=== PATIENT | female | born 1990 | race Two or more races ===

== ENCOUNTER 2022-05-09 15:00 | Inpatient (IN) | payer OTHER ==
[~2022-05-09] VITALS: Ht 162.6 cm; Wt 67.1 kg
[2022-05-21] MEDS ORDERED: PRENATAL CAPLE1 EAC1 PO (10:17)
== END 2022-05-23 13:03 | disposition home or self-care (01) | DRG 807 ==
LOC: EDUNIT# 15:00 → OB/GYN 05-21 08:18 → LDR 05-21 08:18 → OB/GYN 05-21 09:34
PROVIDERS: ADMIT Obstetrics & Gynecology Maternal & Fetal Medicine; ATTEND Obstetrics & Gynecology Maternal & Fetal Medicine
PROC: 10E0XZZ Delivery of Products of Conception, External Approach (ICD-10-PCS; principal; 2022-05-21)
PROC: 0UQG7ZZ Repair Vagina, Via Natural or Artificial Opening (ICD-10-PCS; 2022-05-21)
PROC: 0W8NXZZ Division of Female Perineum, External Approach (ICD-10-PCS; 2022-05-21)
PROC: 4A1HXCZ Monitoring of Products of Conception, Cardiac Rate, External Approach (ICD-10-PCS; 2022-05-21)
DX: O71.4 Obstetric high vaginal laceration alone (principal); Z37.0 Single live birth; Z3A.39 39 weeks gestation of pregnancy; Z20.822 Contact with and (suspected) exposure to COVID-19

== ENCOUNTER 2022-05-20 12:53 | Outpatient (CLI) | payer OTHER ==
[2022-05-21] MEDS ORDERED: PRENATAL CAPLE1 EAC1 PO (10:17)
== END 2022-05-20 13:37 | disposition home or self-care (01) ==
LOC: NST 12:53
PROVIDERS: ATTEND Obstetrics & Gynecology Gynecology
DX: Z34.83 Encounter for supervision of other normal pregnancy, third trimester (principal)

== ENCOUNTER 2022-06-27 09:05 | Outpatient (CLI) | payer OTHER ==
[~2022-06-27 09:05] MED LIST: PRENATAL CAPLE1 EAC1 PO
== END 2022-06-27 09:07 | disposition home or self-care (01) ==
LOC: MRI 09:05
PROVIDERS: ATTEND Obstetrics & Gynecology Gynecology
DX: O72.1 Other immediate postpartum hemorrhage (principal); Q27.30 Arteriovenous malformation, site unspecified

== ENCOUNTER 2024-05-13 15:43 | Emergency (ER) | payer OTHER ==
[~2024-05-13] VITALS: Ht 157.5 cm; Wt 56.7 kg
[2024-05-13] MEDS ORDERED: GILTUSS EX200 MG/5 M PO (16:48)
[2024-05-13] MEDS ORDERED: LEVOFLOXACIN500 MG PO (16:49)
[2024-05-13] MEDS ORDERED: IPRATROPIUM BROMIDE 0.5 MG/2.5 ML AMPUL.NEB IH SCH (17:30)
[2024-05-13] MEDS ORDERED: ALBUTEROL SULFATE 0.5 ML/2.5 MG SOLUTION IH ONE (17:30)
[2024-05-13 18:08] LABS: HEMOGLOBIN 15.1 g/dL (12.0-15.00); MEAN CELL VOLUME 90.6 fL (80.00-100.00); MEAN CORPUSCULAR HEMOGLOBIN 31.1 pg (27.00-32.0); MEAN CORPUSCULAR HGB CONC 34.3 g/dl (32.0-36.0); PLATELET COUNT 268 K/uL (150-450); RED BLOOD COUNT 4.85 M/uL (4.00-6.00); RED CELL DISTRIBUTION WIDTH 13.4 % (11.5-14.5)
[2024-05-13] MEDS ORDERED: KETOROLAC TROMETHAMINE 30 MG VIAL IM STA (20:38)
== END 2024-05-13 21:04 | disposition home or self-care (01) ==
LOC: ER 15:43
PROVIDERS: Nurse Practitioner Family
DX: R05.8 Other specified cough (principal); Z20.822 Contact with and (suspected) exposure to COVID-19; R07.89 Other chest pain